=== PATIENT | male | born 1985 | race Asian ===

== ENCOUNTER 2024-08-05 18:25 | Emergency (ER) | payer OTHER, SELFPAY ==
[2024-08-05 18:30] VITALS: BP 155/77; PULSE 110; RESP 18; TEMP 36.3; O2SAT 96; BMI 29.2
--- NOTE | 2024-08-05 18:38 | ED.GENADULT ---
HPI - General Adult General Chief complaint: Laceration/Wound Stated complaint: left side of face cut Time Seen by Provider: 08/05/24 18:32 Source: patient Mode of arrival: ambulatory Limitations: no limitations History of Present Illness HPI narrative: 39-year-old male coming in today with a laceration above his left eyebrow after falling on the ice today. Patient was playing hockey and fell forward. He denies having headache, denies feeling foggy or confused. No nausea or vomiting. He did not lose consciousness. Denies other injury. Patient is not anticoagulated. Related Data Allergies Allergy/AdvReac Type Severity Reaction Status Date / Time No Known Drug Allergies Allergy Verified 08/05/24 18:30 Review of Systems Status of ROS: Reports: 6 or more systems reviewed and unremarkable except as noted in History and below Exam Narrative: Exam Narrative: Well-nourished well-developed patient in no acute distress. Alert and oriented. Answers questions appropriately. Mood and affect are appropriate. Thoughts are goal oriented and rational. No tangential or magical thinking noted. Patient speaks in full sentences without needing to catch his breath. No word-finding difficulty or confusion noted. HEENT: Normocephalic atraumatic. Pupils are equally round reactive to light. Extraocular muscles are intact. Conjunctivae are moist without any icterus noted. Moist mucous membranes. No trauma noted to the inside of the mouth. No tenderness to palpation of cervical spine. Full range of motion with flexion, extension, side bending and rotation without pain. Patient has a v-shaped laceration over the left outer eyebrow. The laceration extends through the dermis into the subcutaneous tissue. One side of the V extends through the subcutaneous tissue. He has full range of motion of the eyebrows and eyelid. There is no crepitus in the area. No tenderness around the orbit. No pain with extraocular motion. Skin: Well perfused without any obvious rashes. Const: Vital Signs, click to edit/add: Vital Signs - 24 hr 08/05/24 18:30 Temperature 97.4 F L Pulse Rate [Pulse Oximeter] 110 H Respiratory Rate 18 Blood Pressure [Ri ght Upper Arm] 155/77 H Pulse Oximetry 96 Oxygen Delivery Me thod Room Air Course Course ED Course: Area was anesthetized with lidocaine with epinephrine. The wound was cleaned and irrigated. Seven sutures with 5 0 Ethilon were placed without difficulty and great skin approximation. Vital Signs Vital signs: Initial Vital Signs Temperature 97.4 F L 08/05/24 18:30 Temperature Source Temporal Artery Scan 08/05/24 18:30 Pulse Rate 110 H 08/05/24 18:30 Respiratory Rate 18 08/05/24 18:30 Blood Pressure 155/77 H 08/05/24 18:30 Blood Pressure Mean 103 08/05/24 18:30 Pulse Oximetry 96 08/05/24 18:30 Oxygen Delivery Method Room Air 08/05/24 18:30 Vital Signs Temperature 97.4 F L 08/05/24 18:30 Pulse Rate 110 H 08/05/24 18:30 Respiratory Rate 18 08/05/24 18:30 Blood Pressure 155/77 H 08/05/24 18:30 Pulse Oximetry 96 08/05/24 18:30 Oxygen Delivery Method Room Air 08/05/24 18:30 Temperature 97.4 F L 08/05/24 18:30 Pulse Rate 110 H 08/05/24 18:30 Respiratory Rate 18 08/05/24 18:30 Blood Pressure 155/77 H 08/05/24 18:30 Pulse Oximetry 96 08/05/24 18:30 Oxygen Delivery Method Room Air 08/05/24 18:30 Medical Decision Making MDM Narrative Medical decision making narrative: Laceration to the eyebrow. Deep enough where I believe antibiotics would be beneficial prophylaxis. We will also update his tetanus shot. At this time no evidence of deeper pathology, no evidence of concussion. No imaging was obtained today. Discharge Plan Discharge Clinical Impression: Laceration Patient Disposition: Home, Self-Care Condition: Improved Additional Instructions: Keep wound clean and dry. Do not soak such as taking baths, swimming. Follow-up in approximately 1 week for suture removal with your primary care provider. Watch for signs and symptoms of infection including increasing redness of the area, purulent drainage, or fever. If this occurs follow-up right away with your doctor or return to the ER. If you develop confusion, changes in your vision, or vomiting then you should return to the ER. Stand Alone Forms: [facility] Info Instructions
--- OUTSIDE RECORDS SUMMARY | 2024-08-05 18:47 | XMS_ITS | Encounter Summary ---
Author Organization [facility] Address [address] [place] [id number] Phone CareEverywhereSuppor Care Team Providers Care Mail Handler Assistant Name Role Phone Unavailable Primary Care Provider Unavailabl e Encounter Details Date Type Department Care Team (Late st Contact Info) Description 03/21/2024 Claims Summary [facility] [address] [place] [address] Provider, Claims Summary MD Maxine [address] [place] [address] Social History Tobacco Use Types Packs/Day Years Used Date Smoking Tobacco: Never Assessed Sex and Gender Information Value Date Recorded Sex Assigned at Not on file 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
--- OUTSIDE RECORDS SUMMARY | 2024-08-05 18:47 | XMS_ITS | Encounter Summary ---
Author Organization [facility] Address [address] [place] [address] Phone CareEverywhereSuppor [email or web address] Care Team Providers Care Senior Java Architect Name Role Phone Unavailable Primary Care Provider Unavailabl e Encounter Details Date Type Department Care Team (Late st Contact Info) Description 04/19/2024 Claims Summary [facility] [address] [place] [address] Provider, Claims Summary MD Maxine [address] [place] [address] Social History Tobacco Use Types Packs/Day Years Used Date Smoking Tobacco: Never Assessed Sex and Gender Information Value Date Recorded Sex Assigned at Not on file 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
--- OUTSIDE RECORDS SUMMARY | 2024-08-05 18:47 | XMS_ITS | Encounter Summary ---
Author Organization [facility] Address [address] [place] [address] Phone CareEverywhereSuppor [email or web address] Care Team Providers Care Compliance Lead Name Role Phone Unavailable Primary Care Provider Unavailabl e Encounter Details Date Type Department Care Team (Late st Contact Info) Description 05/23/2024 Claims Summary [facility] [address] [place] [address] Provider, Claims Summary MD Maxine [address] [place] [address] Social History Tobacco Use Types Packs/Day Years Used Date Smoking Tobacco: Never Assessed Stress Answer Date Recorded Stress in your Life Not on file 05/19/2024 Dealing with Stress 3 05/19/2024 Sex and Gender Information Value Date Recorded Sex Assigned at Not on file Legal Sex Male 12:[address] JUDGE Gender Identity Not on file Sexual Orientation Not on file documented as of this encounter Plan of Treatment Not on file documented as of this encounter Visit Diagnoses Not on filedocumented in this encounter
--- OUTSIDE RECORDS SUMMARY | 2024-08-05 18:47 | XMS_ITS | Encounter Summary ---
Author Organization [facility] Address [address] [place] [address] Phone CareEverywhereSuppor [email or web address] Care Team Providers Care Business Area Manager Name Role Phone Unavailable Primary Care Provider Unavailabl e Encounter Details Date Type Department Care Team (Late st Contact Info) Description 07/18/2024 Claims Summary [facility] [address] [place] [address] Provider, Claims Summary MD Maxine [address] [place] [address] Social History Tobacco Use Types Packs/Day Years Used Date Smoking Tobacco: Never Assessed Stress Answer Date Recorded Stress in your Life Not on file 05/19/2024 Dealing with Stress 3 05/19/2024 Sex and Gender Information Value Date Recorded Sex Assigned at Not on file 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
--- OUTSIDE RECORDS SUMMARY | 2024-08-05 18:47 | XMS_ITS | Clinical Summary ---
Author Organization [facility] Address [address] [place] [address] Phone CareEverywhereSuppor [email or web address] Care Team Providers Care Automobile Assembler Name Role Phone Unavailable Primary Care Provider Unavailabl e Encounters Date Type Department Care Team Description 07/18/2024 Claims Summary [facility] [address] [facility] [place] [address] Provider, Claims Summary MD Maxine 06/19/2024 Claims Summary [facility] [address] [facility] [place] [address] Provider, Claims Summary MD Maxine 05/23/2024 Claims Summary [facility] [address] [facility] [place] [address] Provider, Claims Summary MD Maxine from Last 3 Months Social History Tobacco Use Types Packs/Day Years Used Date Smoking Tobacco: Never Assessed Stress Answer Date Recorded Stress in your Life Not on file 05/19/2024 Dealing with Stress 3 05/19/2024 Sex and Gender Information Value Date Recorded Sex Assigned at Not on file 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
--- OUTSIDE RECORDS SUMMARY | 2024-08-05 18:47 | XMS_ITS | Clinical Summary ---
Author Organization [facility] Address [address], [place] [address] Care Team Providers Care Production Metal Sprayer Name Role Phone No Primary/Referring, Lai Primary Care Provider Unavailable Source Comments You are receiving this document as you are listed as the primary care provider,follow-up provider, or the patient has been referred to you for consultation.This is in compliance with the Medicare and[facility] E[facility] Incentive Program,which states Providers who transition their patient to another setting of careor provider of care or refers their patient to another provider of care shouldprovide summary care record for each transition of care or referral. [facility] Allergies No known active allergies Medications No known medications Active Problems No known active problems Immunizations Name Administration Dates Next Due Influenza IIV4 (Quadrivalent) 0.5mL (72111) 03/12,06/04/2019 Moderna Monovalent 12+ 12/25/2020,11/25/2020 Social History Tobacco Use Types Packs/Day Years Used Date Smoking Tobacco: Never Sex and Gender Information Value Date Recorded Sex Assigned at Not on file Gender Identity Not on file Sexual Orientation Not on file Last Filed Vital Signs Vital Sign Reading Time Taken Comments Blood Pressure 131/84 05/10/2021 8:01 AM CDT Pulse 92 05/10/2021 8:01 AM CDT Temperature 36.9 C (98.5 F) 05/10/2021 8:01 AM CDT Respiratory Rate 16 05/10/2021 8:01 AM CDT Oxygen Saturation 99% 05/10/2021 8:01 AM CDT Inhaled Oxygen Concentration - - Weight - - Height - - Body Mass Index - - Plan of Treatment Health Maintenance Due Date Last Done Comments Hep C Screening (Preventive Services) 1984 HIV Screening (Preventive Services) 2000 Adult Preventive Visit 2002 DTaP/Tdap/Td (1 - Tdap) 2003 HepB (1) 2003 Cholesterol 2019 COVID-19 Vaccine (3 - 2023-2 5 season) 2024 12/25/2020, 11/25/2020 Influenza (#1) 2024 03/30/2021, 06/04/2019, 04/23/2016 Zoster/Shingles (1 of 2) 2034 HPV Vaccine Aged Out No longer eligi ble based on patient's age to complete this topic HepA Aged Out No longer eligi ble based on patient's age to complete this topic Hib Aged Out No longer eligi ble based on patient's age to complete this topic IPV (Polio) Aged Out No longer eligi ble based on patient's age to complete this topic MCV4 Aged Out No longer eligi ble based on patient's age to complete this topic Pneumococcal Aged Out No longer eligi ble based on patient's age to complete this topic Care Teams Production Metal Sprayer Relationship Specialty Start Date End Date No Primary/Referring, Lai PCP - General 11/03/20
--- OUTSIDE RECORDS SUMMARY | 2024-08-05 18:47 | XMS_ITS | Encounter Summary ---
Author Organization [facility] Address [address] [place] [phone] Phone CareEverywhereSuppor [email or web address] Care Team Providers Care Trademark Affixer Name Role Phone Unavailable Primary Care Provider Unavailabl e Encounter Details Date Type Department Care Team (Late st Contact Info) Description 02/08/2024 Claims Summary [facility] [address] [place] [address] Provider, Claims Summary MD Maxine [address] [place] [address] Social History Tobacco Use Types Packs/Day Years Used Date Smoking Tobacco: Never Assessed Sex and Gender Information Value Date Recorded Sex Assigned at Not on file 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
--- OUTSIDE RECORDS SUMMARY | 2024-08-05 18:47 | XMS_ITS | Encounter Summary ---
Author Organization [facility] Address [address] [place] [address] Phone CareEverywhereSuppor [email or web address] Care Team Providers Care Wharf Builder Name Role Phone Unavailable Primary Care Provider Unavailabl e Encounter Details Date Type Department Care Team (Late st Contact Info) Description 06/19/2024 Claims Summary [facility] [address] [place] [address] Provider, Claims Summary MD Maxine [address] [place] [address] Social History Tobacco Use Types Packs/Day Years Used Date Smoking Tobacco: Never Assessed Stress Answer Date Recorded Stress in your Life Not on file 05/19/2024 Dealing with Stress 3 05/19/2024 Sex and Gender Information Value Date Recorded Sex Assigned at Not on file 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
[2024-08-05 19:06] VITALS: BP 135/70; PULSE 90; RESP 18; TEMP 36.7; O2SAT 96
[2024-08-05 19:07] VITALS: BP 135/70; PULSE 90; RESP 18; TEMP 36.7
== END 2024-08-05 19:07 | disposition home or self-care (01) ==
PROVIDERS: Emergency Provider Family Medicine
DX: S01.112A Laceration without foreign body of left eyelid and periocular area, initial encounter (principal); V00.218A Other ice-skates accident, initial encounter; Y93.22 Activity, ice hockey; Y92.330 Ice skating rink (indoor) (outdoor) as the place of occurrence of the external cause
CPT/HCPCS: 12011; 99283; 99284